=== PATIENT | female | born 1950 | race Caucasian/White ===

== ENCOUNTER → 2016-07-26 | Outpatient (CLI) | payer MEDICARE ==
[2016-07-26 10:44] LABS: EKG EKG PERFORMED
[2016-07-26 11:30] LABS: Basophils % (A) 0 %; CH 29.9; CHCM 32.5; Eosinophils # (A) 0.1 k/uL (0-0.7); Eosinophils % (A) 3 %; HDW 2.07; HGB 13.6 gm/dL (11.4-16.0); Luc % (Auto) 2; Lymphocytes # (A) 1.1 k/uL (1.0-4.8); Lymphocytes % (A) 27 %; MCH 30.7 pg (25.0-35.0); MCHC 33.2 g/dL (31.0-37.0); MCV 92.4 fL (80.0-100.0); Mean Platelet Volume 6.6; Monocytes # (A) 0.2 k/uL (0-1.0); Monocytes % (A) 6 %; Neutrophils # (A) 2.5 k/uL (1.3-7.7); Neutrophils % (A) 61 %; RBC 4.43 m/uL (3.80-5.40); RDW 12.6 % (11.5-15.5); WBC (Perox) 4.18
[2016-07-26 11:33] LABS: Appearance,Urine Clear (Clear); Bacteria,Urine Rare /hpf; Bilirubin,Urine Negative (Negative); Glucose,Urine (UA) Negative (Negative); Ketones,Urine Negative (Negative); Leukocyte Esterase,Urine Small (Negative); Nitrite,Urine Negative (Negative); PH, Urine 6.5 (5.0-8.0); Particle Count 2209; Protein,Urine Negative (Negative); Specific Gravity,Urine 1.004 (1.001-1.035); UA Billing (MACRO vs. MICRO) MICRO; Urobilinogen,Urine <2.0 mg/dL (<2.0); WBC,Urine 14 /hpf (0-5)
[2016-07-26 11:34] LABS: Partial Thromboplastin Time 23.5 sec (22.0-30.0); Prothrombin Time 10.2 sec (9.0-12.0)
[2016-07-26 11:39] LABS: ALT 42 U/L (9-52); AST 33 U/L (14-36); Alkaline Phosphatase 48 U/L (38-126); Anion Gap 10 mmol/L; Blood Urea Nitrogen 18 mg/dL (7-17); Calcium 9.8 mg/dL (8.4-10.2); Carbon Dioxide 28 mmol/L (22-30); Chloride 103 mmol/L (98-107); Glucose 96 mg/dL (74-99); Non-African American GFR(MDRD) >60 (>60 ml/min/1.73 sqM); Potassium 4.7 mmol/L (3.5-5.1); Sodium 141 mmol/L (137-145); Total Bilirubin 0.6 mg/dL (0.2-1.3); Total Protein 6.9 g/dL (6.3-8.2)
== END | disposition home or self-care (01) ==
LOC: LABPAT 10:13
PROVIDERS: ATTEND Orthopaedic Surgery Sports Medicine
DX: Z01.810 Encounter for preprocedural cardiovascular examination (principal); Z01.812 Encounter for preprocedural laboratory examination; Z51.81 Encounter for therapeutic drug level monitoring; Z79.01 Long term (current) use of anticoagulants
CPT/HCPCS: 80053; 81001; 85025; 85610; 85730; 87070; 93005

== ENCOUNTER 2016-08-23 09:37 | Inpatient (IN) | payer MEDICARE ==
[2016-08-21 15:24] VITALS: BMI 30.6
[~2016-08-23 09:37] MED LIST: ACETAMINOPHEN TAB 500 MG TAB PO ONE; DEXAMETHASONE SOD PHOSPHATE 10 MG/ML 1 ML VIAL IV ONE; HYDROmorphone 1 MG/ML 1 ML SYRINGE IVP PRN; LIDOCAINE 1% 20 ML VIAL (10MG/ML) FOR IV START INTRADERMA PRN; MELOXICAM 7.5 MG TAB PO ONE; MIDAZOLAM 2 MG/2 ML VIAL IV PRN; ONDANSETRON 4 MG/2 ML VIAL IVP ONE; ROPIVACAINE 246.25 MG, EPINEPHrine 0.5 MG, KETOROLAC 30 MG, cloNIDine HCL/PF 80 MCG, WA... MISCELLANE ONE; TRANEXAMIC ACID 1,000 MG in SODIUM CHLORIDE 0.9% 100 ML IVPB ONE; ceFAZolin 2 GM in SODIUM CHLORIDE 0.9% 100 ML IVPB ONE
[2016-08-23] MEDS: LACTATED RINGERS 1,000 ML IV SCH ×4 (10:36→23:08)
[2016-08-23] MEDS ORDERED: MIDAZOLAM 2 MG/2 ML VIAL ONE (11:31)
[2016-08-23] MEDS ORDERED: MORPHINE SULFATE (PF) 0.3 MG/0.3 ML SYR ONE (11:31)
[2016-08-23] MEDS ORDERED: fentaNYL (PF) 50 MCG/ML 2 ML AMP ONE (11:31)
[2016-08-23] MEDS ORDERED: diphenhydrAMINE 50 MG/ML 1 ML VIAL ONE (11:31)
[2016-08-23] MEDS ORDERED: PROPOFOL 10 MG/ML 20 ML VIAL IV ONE (11:31)
[2016-08-23] MEDS ORDERED: TRANEXAMIC ACID 1,000 MG/10 ML VIAL ONE (11:31)
[2016-08-23] MEDS ORDERED: PHENYLEPHRINE-0.9% NACL SYG 1 MG/10 ML SYRINGE ONE (11:31)
[2016-08-23] MEDS ORDERED: SODIUM CHLORIDE 0.9% 100 ML BAG ONE (11:31)
[2016-08-23] MEDS ORDERED: ceFAZolin 3,000 MG in SODIUM CHLORIDE 0.9% IRRIGATIO 3,000 ML IRRIGATION ONE (12:17)
[2016-08-23] MEDS ORDERED: LACTATED RINGERS 1,000 ML IV ONE (13:15)
[2016-08-23] MEDS ORDERED: ONDANSETRON 4 MG/2 ML VIAL IVP PRN (13:34)
[2016-08-23] MEDS ORDERED: BISACODYL 10 MG SUPP RECTAL PRN (13:34)
[2016-08-23] MEDS ORDERED: ACETAMINOPHEN TAB 325 MG TAB PO PRN (13:34)
[2016-08-23] MEDS ORDERED: NALOXONE 0.4 MG/ML 1 ML VIAL IV PRN ×2 (13:34→13:58)
[2016-08-23] MEDS ORDERED: TEMAZEPAM 15 MG CAP PO PRN (13:34)
[2016-08-23] MEDS ORDERED: HYDROcodone/APAP 7.5-325MG 1 EACH TAB PO PRN (13:34)
[2016-08-23] MEDS ORDERED: MAGNESIUM HYDROXIDE 2,400 MG/10 ML CUP PO PRN (13:34)
[2016-08-23] MEDS ORDERED: traMADol 50 MG TAB PO PRN (13:34)
[2016-08-23] MEDS ORDERED: HYDROmorphone 1 MG/ML 1 ML SYRINGE IVP PRN ×3 (13:34)
[2016-08-23] MEDS ORDERED: DIAZEPAM 5 MG TAB PO PRN (13:34)
[2016-08-23] MEDS ORDERED: NA PHOS,M-B/NA PHOS,DI-BA 133 ML ENEMA RECTAL PRN (13:34)
[2016-08-23] MEDS ORDERED: MORPHINE SULFATE 4 MG/ML SYRINGE IVP PRN (13:58)
[2016-08-23] MEDS ORDERED: NALBUPHINE 10 MG/ML AMPUL IV PRN (13:58)
--- NOTE | 2016-08-23 14:12 | XR ---
EXAMINATION TYPE: XR knee limited RT DATE OF EXAM: 08/23/2016 1:52 PM CLINICAL HISTORY: Postoperative evaluation Two views of the right knee are submitted. Identified are changes of total knee arthroplasty with femoral and tibial components appearing well seated. Postsurgical soft tissue changes are noted. Alignment is anatomic.
[2016-08-23] MEDS: diphenhydrAMINE 50 MG/ML 1 ML VIAL IVP PRN ×2 (16:28→21:45)
--- NOTE | 2016-08-23 20:21 | CONS ---
DATE OF CONSULTATION: REASON FOR CONSULTATION: Recommendations regarding antihypertensive medications. Patient is a very pleasant 66-year-old female admitted for right knee arthroplasty. Patient successfully underwent surgery. Patient denies any pain at this point of time. Patient did not pass gas yet. Patient is postoperative day zero. Patient denied any fever or chills, dysuria. Patient denied any nausea, vomiting, abdominal pain. REVIEW OF SYSTEMS: CONSTITUTIONAL: No fever, no malaise, no fatigue. HEENT: No recent visual problems or hearing problems. Denied any sore throat. CARDIOVASCULAR: No chest pain, orthopnea, PND, no palpitations, no syncope. PULMONARY: No shortness of breath, no cough, no hemoptysis. GASTROINTESTINAL: No diarrhea, no nausea, no vomiting, no abdominal pain. Normoactive bowel sounds. NEUROLOGICAL: No headaches, no weakness, no numbness. HEMATOLOGICAL: Denies any bleeding or petechiae. GENITOURINARY: Denies any burning micturition, frequency, or urgency. MUSCULOSKELETAL/RHEUMATOLOGICAL: As described in HPI. ENDOCRINE: Denies any polyuria or polydipsia. The rest of the 14 point review of systems is negative. Home medications include: 1. Ubidecarenone. 2. Vitamin B complex. 3. Multivitamin. 4. Metoprolol XL. 5. Methocarbamol. 6. Ibuprofen. 7. Glucosamine. 8. Cholecalciferol. 9. Aspirin. PAST MEDICAL HISTORY: 1. Hypertension. 2. Hyperlipidemia. 3. Osteoarthritis. 4. Appendectomy. 5. Breast surgery. 6. Hysterectomy. SOCIAL HISTORY: Denied any smoking, alcohol abuse or any drug abuse. FAMILY HISTORY: Uterine cancer in the family. PHYSICAL EXAMINATION: VITAL SIGNS: Temperature 97.4, pulse of 60, respiratory rate of 16. Blood pressure is 116/74. Saturating at 96% on 2 L of oxygen by nasal cannula. GENERAL: The patient is alert and oriented x3, not in any acute distress. Well developed, well nourished. HEENT: Pupils are round and equally reacting to light. EOMI. No scleral icterus. No conjunctival pallor. Normocephalic, atraumatic. No pharyngeal erythema. No thyromegaly. CARDIOVASCULAR: S1 and S2 present. No murmurs, rubs, or gallops. PULMONARY: Chest is clear to auscultation, no wheezing or crackles. ABDOMEN: Soft, nontender, nondistended, normoactive bowel sounds. No palpable organomegaly. MUSCULOSKELETAL: Deferred to Orthopedic Surgery. EXTREMITIES: No cyanosis, clubbing, or pedal edema. NEUROLOGICAL: Gross neurological examination did not reveal any focal deficits. SKIN: No rashes. LABORATORY DATA: None available. ASSESSMENT AND PLAN: 1. Postoperative day zero, right knee arthroplasty. Pain management and DVT prophylaxis as per primary service. 2. Hypertension. Can continue with beta yue. Blood pressure is fairly stable and beta yue will help to prevent ( ) tachycardia and beta yue is also helpful to prevent perioperative myocardial infarction. 3. Hyperlipidemia. Continue with rosuvastatin. 4. Severe osteoarthritis. 5. Obesity. Counseling was provided. Thank you for letting me participate in this patient's care. Will follow the patient on an as-needed basis.
[2016-08-23] MEDS: ceFAZolin 2 GM in SODIUM CHLORIDE 0.9% 100 ML IVPB SCH (20:31)
[2016-08-23] MEDS: ATORVASTATIN 10 MG TAB PO SCH (20:32)
[2016-08-23] MEDS: METOPROLOL SUCCINATE (ER) 25 MG TAB.ER.24H PO SCH (20:32)
[2016-08-23] MEDS: ASPIRIN 325 MG TAB PO SCH (20:32)
[2016-08-23] MEDS: SENNOSIDES-DOCUSATE SODIUM 1 EACH TAB PO SCH (21:45)
--- NOTE | 2016-08-23 22:30 | OP ---
DATE OF SERVICE: SURGEON: FRANCIA KRISHNAMURTHY MD SOFA COVER INSPECTOR: BRYCE PERRIN PA-C. PREOPERATIVE DIAGNOSIS: Right knee osteoarthrosis. POSTOPERATIVE DIAGNOSIS: Right knee osteoarthrosis. OPERATION: Right total knee arthroplasty. ANESTHESIA: Spinal with sedation. ESTIMATED BLOOD LOSS: 100 mL. Tourniquet time: 50 minutes at 250 mmHg. SPECIMENS REMOVED: COMPLICATIONS: None apparent. DRAINS: None. DISPOSITION: Postanesthesia care unit. OPERATIVE FINDINGS: INDICATIONS: Lala is a very pleasant 66-year-old female with long-standing history of right knee pain. History and physical examination are consistent with advanced right knee osteoarthrosis. She has been through significant nonoperative management up to this point. Further treatment options were discussed and she has decided to go forward with right total knee arthroplasty. Risks of the procedure were discussed with her in detail. These risks include, but are not limited to risk of infection, nerve damage, bleeding, pain, and a small risk of deep vein thrombosis, which could lead to fatal pulmonary embolism. There is also a risk of loosening of the implant, which could require revision operation. Patient understands these risks. All questions were answered to her satisfaction. Appropriate informed consent was obtained. DESCRIPTION OF THE PROCEDURE: The patient was identified in the preoperative holding area. Surgical site was marked by both the patient and myself. She was given 2 grams of Ancef IV for prophylactic purposes. She was then transferred to the operative suite where she was placed supine on the operating room table. A spinal anesthetic was then administered and dosed per the anesthesia department without apparent complication. Examination under anesthesia was then performed. The patient was approximately 2 to 3 degrees shy of full extension. She had 95 degrees of flexion and the medial collateral ligament, lateral collateral ligament and posterior cruciate ligaments were stable. Tourniquet was then placed high on the right upper thigh, well-padded in preparation for surgery. Patient's right lower extremity was then prepped and draped usual sterile fashion. Standard surgical pause was then undertaken to ensure that we were operating on correct site and that appropriate preoperative antibiotics had been given. All staff in the room were in agreement and we proceeded. The outlines of the patella were then marked with a surgical pen. A planned 12 cm vertical incision was centered over the patella was marked with a surgical pen. The leg was then exsanguinated with an Esmarch dressing. The knee was then flexed and tourniquet was inflated to 250 mm. Total tourniquet time for the procedure was 50 minutes. Incision was made with a 10 blade scalpel. Dissection was carried down sharply to the overlying fascia. Great care was taken to minimize the skin flaps. The knee was then exposed using a standard medial parapatellar approach. Small cuff of quadriceps tendon was then left for suturing. She was in a bit of varus preoperatively. A standard medial release was then made. Superficial medial collateral ligament was dissected off the bone around to the posterior aspect of the proximal tibia. The medial meniscus was then excised as well. The lateral meniscus was also released anteriorly. The left was then externally rotated. The patella was everted. The knee was flexed. Retractors were then placed to protect the collateral ligaments. I then proceeded to remove the infrapatellar fat pad. It was excised sharply tangentially with the fibers of the patellar tendon. I then proceeded to remove peripheral osteophytes. This was done with a rongeur. I then proceeded with distal femoral resection. She did have near full extension. A planned 9 mm resection was done. The canal was then entered in the midline of the femur approximately 10 mm anterior to the origin of the posterior cruciate ligament. The magdaleno was then advanced down the center of the femur and the magdaleno placed intramedullary. Based on preoperative radiographs, the angle between the anatomical and mechanical axis of the femur was approximately 4 to 5 degrees. ( ) distal femur femoral cutting guide was then set at 4 degrees for the right knee. The distal femoral cutting guide was then advanced over the intramedullary magdaleno. This was seated firmly against the femur. I then as mentioned planned to take 9 mm off the distal femur. The cutting block was then secured onto the femur with pins. The jig was removed and the distal femoral cut was made through the slot of the block. The pins were then removed and the distal femoral cutting block was removed. The accuracy of the distal femoral cuts were checked with two flats bars. I then proceeded with femoral sizing. The posterior referencing sizing guide was held firmly against the resected distal surface of the femur. The posterior condyles were resting on the posterior plane of the guide. Sizing stylus was then placed onto the anterior femur. The size was measured as a size 8 narrow. I then assessed for femoral rotation. The plan was for 3 degrees of external rotation. 3 degrees of external rotation was placed onto the jig. These holes were then marked. I then confirmed the rotation by 3 separate methods. This was done using epicondylar axis as well as Whitesides line and posterior referencing. It was deemed that the external rotation was proper. I then went forward with placing the femoral cutting block. This was placed over the previously placed pinholes. The gavin wing was then placed onto the anterior slots to ensure that we would not notch the anterior femur with the anterior femoral cut. I proceeded with the anterior femoral cut. This was flush with the anterior cortex of the femur. Posterior cuts were then made followed by the anterior chamfer cut and then the posterior chamfer cut. The cutting block was then removed. Throughout the resection, the collateral ligaments were protected with retractors. I then placed a trial size 8 femur. It fit very nice medial to lateral and fit flush with the distal end of the femur. The drill holes were then made. I then proceeded with the tibial cut. I planned for a cruciate-retaining knee. The guide was then placed and set for varus valgus and for slope. Height was set for approximately 2 mm resection from the medial tibial plateau, which was the lower side. I was happy with the alignment and the amount of resection. The cutting block was then pinned to the proximal tibia. The alignment magdaleno was removed and the proximal tibia was resected with the reciprocating saw. Again, this was done with retractors, protecting the collateral ligaments as well as posterior cruciate ligament. I then proceeded to evaluate the flexion and extension gaps. A 10 mm block was placed. The flexion and extension gaps were equal. I then proceeded with resection of the posterior osteophytes. She had very minimal posterior osteophytes. This was done using curved osteotome. This resected the posterior osteophytes and posterior capsule. Stripping was also done off the posterior aspect of the femur at this time. The osteophytes were removed. I then proceeded with resection of the patella. The thickness of the patella was measured using the caliper. Thickness was 22 mm. The thickness of the anticipated patellar dome was then taken into account. Resection was then performed and confirmed to be equal in 4 quadrants using the caliper. Approximately 14 mm of bone remained after the resection. A 32 x 8.5 mm standard patellar trial was then placed. The holes were then drilled and the trial was placed. I then proceeded with sizing tibial plate. A size E tibial plate fit very nicely. I then placed trial femur, the tibial tray and the patellar button. A 10 mm trial tibial insert was also placed. The components fit very nicely. She had full extension and flexion. The extension and flexion gaps were equal and stable to both varus and valgus stress. The patella tracked appropriately. Tibial tray rotation was marked with a Bovie. This was externally rotated properly. I then proceeded with tibial preparation. I first drilled femoral holes and removed femoral component. Tibial tray was then set for proper external rotation as well as mediolateral placement onto the tibia. It was then pinned into place. I then proceeded with punching the keel. I then decided to proceed with cementing of all of our components. The knee was thoroughly irrigated with sterile saline solution via pulse lavage. The lateral geniculate artery was identified and cauterized. All blood was removed from the bone of the tibia, femur patella with pulse lavage. I then proceeded with cementing. 2 packs of antibiotic bone cement were prepared on the back table by the surgical garment fitter. I then proceeded with cementing of the tibia first. The cement was impacted in the keel as well as deeply seated into bone. A second coat of cement was then placed. The tibia was then impacted into place. Excess cement was removed with Jose Miguel's and jokers. I then proceeded with cementing of femoral component. The femoral component was also cemented using standard technique. Excess cement was removed. A 10 mm trial insert was then placed into the knee. It was brought into full extension with a constant axial load placed until the cement had hardened. The patellar component was then cemented. This was held firmly with a compressive device until the cement had dried. When the cement had dried, the knee was taken out of extension. All excess cement was removed from around the prosthesis. I then trialed the knee with a 10 mm insert. Flexion-extension gaps were appropriate. The knee was stable. It came into full extension. I decided to go forward with a 10 mm cross-linked cruciate-retaining tibial insert. Polyethylene was then placed onto the tibial tray and locked. The knee was then reduced. The knee was again further irrigated with sterile saline solution with antibiotic added. The tourniquet was then deflated. Total tourniquet time for the procedure was 50 minutes at 250 mmHg. The final components were Jillian persona size 8 narrow cruciate-retaining femoral component, a size E tibial tray, a 10 mm medial congruent cruciate retaining polyethylene insert and a 32 x 8.5 mm patella. I then proceeded with closure. Again, the knee was thoroughly irrigated. The quadriceps tendon and the medial retinaculum were reapproximated with #2 Ethibond suture. The extensor mechanism was then closed with running #2 Quill suture. Subcutaneous tissues then closed with 2-0 Vicryl interrupted suture. Skin was closed with a running 3-0 Quill suture. Dermabond was applied to the incision. Sterile compressive dressings were then applied. All sponge and needle counts were deemed correct prior to closure. The patient tolerated the procedure without apparent complication. She was transferred to recovery room in stable condition.
[2016-08-24] MEDS: ceFAZolin 2 GM in SODIUM CHLORIDE 0.9% 100 ML IVPB SCH (02:43)
[2016-08-24] MEDS: LACTATED RINGERS 1,000 ML IV SCH ×3 (02:44→18:48)
[2016-08-24] MEDS: HYDROcodone/APAP 7.5-325MG 1 EACH TAB PO PRN ×4 (07:07→23:15)
[2016-08-24] MEDS: hydrOXYzine PAMOATE 25 MG CAP PO PRN ×4 (07:07→22:18)
[2016-08-24 08:22] LABS: Basophils % (A) 0 %; CH 30.3; CHCM 32.5; Eosinophils # (A) 0.1 k/uL (0-0.7); Eosinophils % (A) 1 %; HCT 34.8 % (34.0-46.0); HGB 11.1 gm/dL (11.4-16.0); Luc % (Auto) 2; Lymphocytes # (A) 1.4 k/uL (1.0-4.8); Lymphocytes % (A) 20 %; MCH 29.8 pg (25.0-35.0); MCHC 31.9 g/dL (31.0-37.0); MCV 93.6 fL (80.0-100.0); Mean Platelet Volume 6.6; Monocytes # (A) 0.4 k/uL (0-1.0); Monocytes % (A) 6 %; Neutrophils # (A) 4.9 k/uL (1.3-7.7); Neutrophils % (A) 72 %; RBC 3.72 m/uL (3.80-5.40); RDW 12.6 % (11.5-15.5); WBC 6.8 k/uL (3.8-10.6)
[2016-08-24] MEDS: METOPROLOL SUCCINATE (ER) 25 MG TAB.ER.24H PO SCH ×2 (08:22→20:53)
[2016-08-24] MEDS: FAMOTIDINE 20 MG TAB PO SCH (08:22)
[2016-08-24] MEDS: ASPIRIN 325 MG TAB PO SCH ×2 (08:22→20:50)
[2016-08-24] MEDS ORDERED: ASPIRIN PO SCH (09:00)
--- NOTE | 2016-08-24 09:49 | P.DS ---
Providers Date of admission: 08/23/16 09:37 Expected date of discharge: 08/24/16 Attending physician: Eliu Stevens Consults: 08/23/16 13:34 Consult Physician Routine Consulting Provider: Milton Nolasco Consult Reason/Comments: post op medical management Do you want consulting provider notified?: Yes Primary care physician: Aris Devieldor - Discharge Diagnosis(es) (1) Osteoarthritis of right knee Current Visit: Yes Status: Acute Hospital Course: Patient was admitted to the OR on 08/23/2016 to undergo right total knee arthroplasty. She had failed conservative measures and outpatient desired proceed with surgical intervention. The possible risks, complications , benefits were reviewed with patient and she elected to proceed. Patient underwent the above procedure which she tolerated well without complication. Her postoperative hospital course has remained without complication. On day of discharge she desires discharge to home. On day of discharge she is afebrile, blood vital signs stable, labs within acceptable ranges, wound is benign, neurovascular status intact, calf is soft nontender, abdomen is soft nontender, denying new complaints, tolerating by mouth meds and diet, voiding without difficulty and passing flatus. Review of systems is negative for fever, chills , chest pain, shortness breath, nausea, vomiting, dizziness, headaches, numbness , tingling, calf pain, abdominal pain, slurred speech or other. Procedures: Right total knee arthroplasty Patient Condition at Discharge: Good Plan - Discharge Summary New Discharge Prescriptions: Aspirin 325 mg PO BID #60 tab Docusate [Colace] 100 mg PO BID #60 capsule HYDROcodone/APAP 7.5-325MG [[place] 7.5-325] 1 - 2 each PO Q6HR PRN #90 tab PRN Reason: Pain Discharge Medication List Aspirin [Adult Low Dose Aspirin EC] 324 mg PO DAILY 08/21/16 [History] Cholecalciferol [Vitamin D3] 2,000 unit PO DAILY 08/21/16 [History] Gluc/[place]-MSM#1/C/Shaq/Jemal/Bor [Glucosamine-Chondroitin Tablet] 1 tab PO DAILY 08/21/16 [History] Ibuprofen [Motrin] 400 mg PO Q8HR PRN 08/21/16 [History] Methocarbamol [Robaxin-750] 750 mg PO DAILY PRN 08/21/16 [History] Metoprolol Succinate [Toprol XL] 12.5 mg PO BID 08/21/16 [History] Multivitamins, Thera [Multivitamin (formulary)] 0.5 tab PO BID 08/21/16 [History ] Rosuvastatin Calcium [Crestor] 5 mg PO HS 08/21/16 [History] Ubidecarenone [Co Q-10] 100 mg PO QAM 08/21/16 [History] Vitamin B Complex 0.5 tab PO BID 08/21/16 [History] Aspirin 325 mg PO BID #60 tab 08/24/16 [Rx] Docusate [Colace] 100 mg PO BID #60 capsule 08/24/16 [Rx] HYDROcodone/APAP 7.5-325MG [[place] 7.5-325] 1 - 2 each PO Q6HR PRN #90 tab [Rx] Follow up Appointment(s)/Referral(s): Eliu Stevens MD [STAFF PHYSICIAN] - 2 Weeks Activity/Diet/Wound Care/Special Instructions: Take meds as directed Keep wound clean and dry Weightbearing as tolerated Follow up with Dr. Stevens in office [phone] May shower in 72 hours Discharge Disposition: HOME WITH HOME HEALTH SERVICES
--- NOTE | 2016-08-24 10:34 | P.PN ---
Progress Note - Text Postoperative day 1 status post , total knee arthroplasty under spinal anesthesia, and intrathecal morphine given for postoperative analgesia, patient doing well, there is no anesthesia related complications, further management as per her primary team
[2016-08-24] MEDS: MULTIVITAMINS, THERA 1 EACH TAB PO SCH (18:48)
[2016-08-24] MEDS: SENNOSIDES-DOCUSATE SODIUM 1 EACH TAB PO SCH (20:50)
[2016-08-24] MEDS: ATORVASTATIN 10 MG TAB PO SCH (20:52)
[2016-08-25] MEDS: HYDROcodone/APAP 7.5-325MG 1 EACH TAB PO PRN ×2 (05:49→12:49)
[2016-08-25] MEDS: LACTATED RINGERS 1,000 ML IV SCH ×3 (08:02→08:04)
[2016-08-25] MEDS: METOPROLOL SUCCINATE (ER) 25 MG TAB.ER.24H PO SCH (08:11)
[2016-08-25] MEDS: FAMOTIDINE 20 MG TAB PO SCH (08:11)
[2016-08-25] MEDS: ASPIRIN 325 MG TAB PO SCH (08:11)
[2016-08-25 08:13] VITALS: BP 130/74; RESP 17; TEMP 98.5
[2016-08-25] MEDS: MULTIVITAMINS, THERA 1 EACH TAB PO SCH (08:13)
--- NOTE | 2016-08-25 10:13 | P.PN ---
Subjective Principal diagnosis: Status post right total knee arthroplasty This is a pleasant 66 year-old female post total knee arthroplasty. This is post-op day 2. The patient was evaluated at the bedside today. The patient denies nausea, vomiting, abdominal pain, shortness of breath, and chest pain this morning. She states her pain is controlled at this time. The patient has been doing well with physical therapy. Objective - Vital Signs Vital signs: Vital Signs Temp 98.5 F 08/25/16 07:00 Pulse 80 08/25/16 07:00 Resp 17 08/25/16 07:00 BP 130/74 08/25/16 07:00 Pulse Ox 91 L 08/25/16 07:00 Intake & Output 08/24/16 08/25/16 08/25/16 18:59 06:59 18:59 Output Total 900 Balance -900 Output: Urine 900 Uretheral ([place]) 900 Other: # Voids 3 4 - Exam The patient does not appear in acute distress. Alert and orientated x3. Dressing is clean dry and intact. Incision appears fine with no erythema or active drainage. Calf is soft and nontender. Good foot and ankle motion without difficulty. Sensation and circulatory status is intact. - Labs CBC & Chem 7: 08/24/16 07:41 Assessment and Plan (1) Osteoarthritis of right knee Status: Acute (2) Status post right knee replacement Status: Acute Plan: 1. Continue pain control 2. Anticoagulation with Aspirin 3. Continue physical therapy and ambulation 4. Anticipate discharge home with homecare today.
[2016-08-25 11:42] VITALS: PULSE 98
[2016-08-25] MEDS: hydrOXYzine PAMOATE 25 MG CAP PO PRN (12:49)
== END 2016-08-25 14:13 | disposition home health service (06) | DRG 470 ==
LOC: 2ORMAIN 09:37 → 3SUR 13:30
PROVIDERS: ADMIT Orthopaedic Surgery Sports Medicine; ATTEND Orthopaedic Surgery Sports Medicine
PROC: 0SRC0J9 Replacement of Right Knee Joint with Synthetic Substitute, Cemented, Open Approach (ICD-10-PCS; principal; 2016-08-23 11:00)
DX: M17.11 Unilateral primary osteoarthritis, right knee (principal); I10 Essential (primary) hypertension; Z79.82 Long term (current) use of aspirin; Z79.899 Other long term (current) drug therapy; Z88.5 Allergy status to narcotic agent; Z91.041 Radiographic dye allergy status; E78.5 Hyperlipidemia, unspecified; E66.9 Obesity, unspecified
CPT/HCPCS: 85025; 88300; 94760

== ENCOUNTER → 2018-10-02 | Outpatient (CLI) | payer MEDICARE ==
[2018-10-02 14:16] LABS: Appearance,Urine Clear (Clear); Bacteria,Urine Many /hpf; Bilirubin,Urine Negative (Negative); Blood,Urine Negative (Negative); Color,Urine Yellow; Glucose,Urine (UA) Negative (Negative); Ketones,Urine Negative (Negative); Leukocyte Esterase,Urine Large (Negative); Mucus,Urine Rare /hpf; Nitrite,Urine Negative (Negative); Protein,Urine Negative (Negative); RBC,Urine 1 /hpf (0-5); Urobilinogen,Urine <2.0 mg/dL (<2.0); WBC,Urine 94 /hpf (0-5)
[2018-10-02 14:23] LABS: HCT 36.9 % (34.0-46.0); HGB 11.9 gm/dL (11.4-16.0); MCH 29.2 pg (25.0-35.0); MCHC 32.3 g/dL (31.0-37.0); MCV 90.3 fL (80.0-100.0); Mean Platelet Volume 6.8; Platelet Count 304 k/uL (150-450); RBC 4.09 m/uL (3.80-5.40); RDW 12.8 % (11.5-15.5); WBC 4.8 k/uL (3.8-10.6)
[2018-10-02 14:30] LABS: INR 0.9 (<1.2); Partial Thromboplastin Time 23.6 sec (22.0-30.0); Prothrombin Time 9.7 sec (9.0-12.0)
[2018-10-02 14:41] LABS: ALT 29 U/L (9-52); AST 38 U/L (14-36); African American GFR (CKD) >90 (>60 ml/min/1.73 sqM); Albumin 4.4 g/dL (3.5-5.0); Alkaline Phosphatase 46 U/L (38-126); Anion Gap 7 mmol/L; Blood Urea Nitrogen 17 mg/dL (7-17); Calcium 9.5 mg/dL (8.4-10.2); Carbon Dioxide 28 mmol/L (22-30); Chloride 105 mmol/L (98-107); Glucose 96 mg/dL (74-99); Sodium 140 mmol/L (137-145); Total Bilirubin 0.4 mg/dL (0.2-1.3); Total Protein 6.8 g/dL (6.3-8.2)
== END | disposition home or self-care (01) ==
LOC: LABPAT 13:13
PROVIDERS: ATTEND Orthopaedic Surgery
DX: Z01.812 Encounter for preprocedural laboratory examination (principal)
CPT/HCPCS: 36415; 80053; 81001; 85027; 85610; 85730; 87070